=== PATIENT | female | born 1955 | race Hispanic/Latino ===

== ENCOUNTER 2024-02-27 07:24 | Emergency (ER) | payer MEDICARE, OTHER ==
[2024-02-27 07:56] LABS: #Basophils 0.1 thou/uL (0.0-0.2); #Lymphocytes 1.5 thou/uL (1.20-3.40); #Monocytes 0.6 thou/uL (0.11-0.59); #Neutrophils 5.8 thou/uL (1.40-6.50); %Basophils 1.3 % (0.0-1.0); %Eosinophils 0.3 % (0.0-10.0); %Lymphocytes 18.5 % (21.0-51.0); %Monocytes 7.2 % (0.0-10.0); %Neutrophils 72.6 % (42.0-75.0); Hemoglobin 10.6 g/dL (12.0-16.0); Mean Corpuscular HGB CONC 31.1 g/dL (32.0-36.0); Mean Corpuscular Hemoglobin 27.7 pg (27.0-31.0); Mean Platelet Volume 7.3 fL (7.4-10.4); Platelet Count 256 10x3/uL (130-400); RBC Distribution Width 12.5 % (11.5-14.5); Red Blood Cell (RBC) Count 3.82 mill/uL (4.20-5.40)
[2024-02-27 08:14] LABS: ALT (SGPT) 26 U/L (8-55); AST (SGOT) 37 U/L (5-34); Albumin 3.6 g/dL (3.4-4.8); Alkaline Phosphatase 83 U/L (40-110); Anion Gap 16 mmol/L (10-20); BUN (Urea Nitrogen) 38 mg/dL (9.8-20.1); Bilirubin, Total 0.4 mg/dL (0.2-1.2); Calc. Creatinine Clearance 0 mL/min (70-130); Calcium 9.1 mg/dL (7.8-10.44); Carbon Dioxide 22 mmol/L (23-31); Chloride 99 mmol/L (98-107); Estimated GFR 31; Globulin 3.5 g/dL (2.4-3.5); Glucose 371 mg/dL (80-115); Protein, Total 7.1 g/dL (5.8-8.1); Sodium 132 mmol/L (136-145)
[2024-02-27 08:31] LABS: Troponin I 7.229 ng/mL (< 0.028)
[2024-02-27] MEDS ORDERED: Furosemide 40 MG (4 mL) VIAL ONE (08:41)
[2024-02-27] MEDS ORDERED: Enoxaparin 80 MG (0.8 mL) SYRINGE ONE (08:42)
[2024-02-27] MEDS ORDERED: Heparin 25,000 UNITS/D5W 500 ml bag ONE (09:00)
[2024-02-27] MEDS ORDERED: Nitroglycerin 0.4 MG TAB (25 Tab Bottle) ONE (09:00)
[2024-02-27] MEDS ORDERED: Heparin 10,000 UNITS/ 10 ML VIAL ONE (09:00)
[2024-02-27] MEDS ORDERED: Aspirin Chewable 81 MG TAB ONE (09:00)
[2024-02-27 10:01] LABS: Influenza A by NAA Not Detected (NotDetected); Influenza B by NAA Not Detected (NotDetected); SARS-CoV-2 NAA Rapid Test Not Detected (NotDetected)
== END 2024-02-27 09:29 | disposition short-term general hospital (02) ==
LOC: NAV ERS 07:24
DX: I21.4 Non-ST elevation (NSTEMI) myocardial infarction (principal); I50.9 Heart failure, unspecified; Z87.891 Personal history of nicotine dependence
CPT/HCPCS: 0240U; 71045; 80053; 83880; 84484; 85025; 85730; 93005; 94760; 96374; 96375; J1644; J1650; J1940

== ENCOUNTER 2024-03-28 21:20 | Emergency (ER) | payer MEDICARE ==
[2024-03-28] MEDS ORDERED: Furosemide 40 MG (4 mL) VIAL ONE (21:56)
[2024-03-28 22:03] LABS: #Basophils 0.1 thou/uL (0.0-0.2); #Eosinphils 0.6 thou/uL (0.0-0.7); #Lymphocytes 1.3 thou/uL (1.20-3.40); #Monocytes 0.7 thou/uL (0.11-0.59); #Neutrophils 4.6 thou/uL (1.40-6.50); %Basophils 1.7 % (0.0-1.0); %Eosinophils 8.4 % (0.0-10.0); %Lymphocytes 17.5 % (21.0-51.0); %Monocytes 9.2 % (0.0-10.0); %Neutrophils 63.2 % (42.0-75.0); Hematocrit 28.8 % (36.0-47.0); Hemoglobin 8.3 g/dL (12.0-16.0); Mean Corpuscular HGB CONC 28.9 g/dL (32.0-36.0); Mean Corpuscular Hemoglobin 25.9 pg (27.0-31.0); Mean Corpuscular Volume 89.3 fl (78.0-98.0); Mean Platelet Volume 5.8 fL (7.4-10.4); Platelet Count 272 10x3/uL (130-400); RBC Distribution Width 15.7 % (11.5-14.5); Red Blood Cell (RBC) Count 3.23 mill/uL (4.20-5.40); White Blood Cell (WBC) Count 7.2 10x3/uL (4.8-10.8)
[2024-03-28 22:14] LABS: ALT (SGPT) 52 U/L (8-55); AST (SGOT) 75 U/L (5-34); Albumin 3.2 g/dL (3.4-4.8); Alkaline Phosphatase 124 U/L (40-110); Anion Gap 14 mmol/L (10-20); BUN (Urea Nitrogen) 29 mg/dL (9.8-20.1); Bilirubin, Total 0.4 mg/dL (0.2-1.2); Calc. Creatinine Clearance 0 mL/min (70-130); Calcium 8.8 mg/dL (7.8-10.44); Carbon Dioxide 27 mmol/L (23-31); Chloride 102 mmol/L (98-107); Estimated GFR 34; Globulin 3.8 g/dL (2.4-3.5); Glucose 130 mg/dL (80-115); Potassium 5.4 mmol/L (3.5-5.1); Sodium 138 mmol/L (136-145)
[2024-03-28 22:18] LABS: Troponin I 0.219 ng/mL (< 0.028)
== END 2024-03-28 23:39 | disposition short-term general hospital (02) ==
LOC: NAV ERS 21:20
DX: R09.02 Hypoxemia (principal); R35.1 Nocturia; D64.9 Anemia, unspecified; R79.89 Other specified abnormal findings of blood chemistry; I11.0 Hypertensive heart disease with heart failure; I50.9 Heart failure, unspecified; E11.9 Type 2 diabetes mellitus without complications; Z87.891 Personal history of nicotine dependence; Z79.82 Long term (current) use of aspirin; Z79.4 Long term (current) use of insulin
CPT/HCPCS: 71045; 80053; 83880; 84484; 85025; 93005; 96374; J1940

== ENCOUNTER 2024-05-01 14:41 | Emergency (ER) | payer MEDICARE ==
[2024-05-01 15:27] LABS: Hematocrit 32.4 % (36.0-47.0); Hemoglobin 9.7 g/dL (12.0-16.0); Mean Corpuscular Hemoglobin 24.9 pg (27.0-31.0); Mean Corpuscular Volume 83.1 fl (78.0-98.0); White Blood Cell (WBC) Count 9.9 10x3/uL (4.8-10.8)
[2024-05-01 15:28] LABS: #Basophils 0.1 thou/uL (0.0-0.2); #Eosinphils 0.4 thou/uL (0.0-0.7); #Lymphocytes 2.4 thou/uL (1.20-3.40); #Monocytes 0.7 thou/uL (0.11-0.59); #Neutrophils 6.3 thou/uL (1.40-6.50); %Basophils 1.5 % (0.0-1.0); %Eosinophils 3.5 % (0.0-10.0); %Lymphocytes 24.1 % (21.0-51.0); %Monocytes 7.5 % (0.0-10.0); %Neutrophils 63.4 % (42.0-75.0); Manual Diff?? NO; Mean Corpuscular HGB CONC 29.9 g/dL (32.0-36.0); Mean Platelet Volume 7.1 fL (7.4-10.4); Platelet Count 238 10x3/uL (130-400); RBC Distribution Width 16.2 % (11.5-14.5)
[2024-05-01 15:39] LABS: ALT (SGPT) 13 U/L (8-55); AST (SGOT) 15 U/L (5-34); Albumin 3.7 g/dL (3.4-4.8); Alkaline Phosphatase 73 U/L (40-110); Anion Gap 17 mmol/L (10-20); BUN (Urea Nitrogen) 39 mg/dL (9.8-20.1); Bilirubin, Total 0.4 mg/dL (0.2-1.2); Calc. Creatinine Clearance 0 mL/min (70-130); Calcium 9.5 mg/dL (7.8-10.44); Carbon Dioxide 26 mmol/L (23-31); Chloride 98 mmol/L (98-107); Estimated GFR 22; Glucose 151 mg/dL (80-115); Magnesium 2.4 mg/dL (1.6-2.6); Potassium 4.5 mmol/L (3.5-5.1); Protein, Total 8.7 g/dL (5.8-8.1); Sodium 136 mmol/L (136-145)
[2024-05-01 15:40] LABS: Bacteria/HPF 3+ HPF (None Seen); Bilirubin Negative (Negative); Blood, Urine Small (Negative); CAUTI Indications for Culture Dysuria,urgency,freq; Clarity Cloudy (Clear); Glucose, Urine (Dipstick) >=1000 mg/dL (Negative); Ketone, Urine Negative (Negative); Leukocyte Large (Negative); Nitrite Negative (Negative); Protein, Urine (Dipstick) 100 mg/dL (Neg-Trace); Specific Gravity, Urine 1.015 (1.005-1.030); pH, Urine 5.5 (5.0-9.0)
[2024-05-01 15:42] LABS: Urine Culture Reflex Yes Yes
[2024-05-01] MEDS ORDERED: cefTRIAXone (ROCEPHIN) 1 GM VIAL ONE (17:46)
[2024-05-01] MEDS ORDERED: Sodium Chloride 0.9% 100 ML ONE (17:47)
== END 2024-05-01 18:50 | disposition home or self-care (01) ==
LOC: NAV ERS 14:41
DX: N39.0 Urinary tract infection, site not specified (principal); N17.9 Acute kidney failure, unspecified; I25.2 Old myocardial infarction; I48.91 Unspecified atrial fibrillation; E11.9 Type 2 diabetes mellitus without complications; I11.0 Hypertensive heart disease with heart failure; I50.9 Heart failure, unspecified; E78.00 Pure hypercholesterolemia, unspecified; Z87.891 Personal history of nicotine dependence; Z79.82 Long term (current) use of aspirin; Z79.4 Long term (current) use of insulin; Z79.899 Other long term (current) drug therapy
CPT/HCPCS: 80053; 81001; 83605; 83735; 85025; 87077; 87086; 87186; 96374; J0696; J3490

== ENCOUNTER 2024-05-25 22:50 | Emergency (ER) | payer MEDICARE | END 2024-05-25 23:40 | disposition home or self-care (01) | LOC: NAV ERS 22:50 | DX: I95.9 Hypotension, unspecified (principal); E11.9 Type 2 diabetes mellitus without complications; I11.0 Hypertensive heart disease with heart failure; I50.9 Heart failure, unspecified; I25.2 Old myocardial infarction; Z87.891 Personal history of nicotine dependence; Z79.4 Long term (current) use of insulin; Z79.82 Long term (current) use of aspirin; Z79.899 Other long term (current) drug therapy | CPT/HCPCS: 99284 ==

== ENCOUNTER 2024-10-17 12:04 | Outpatient (CLI) | payer MEDICARE ==
[2024-10-17 12:32] LABS: Anion Gap 14 mmol/L (10-20); BUN (Urea Nitrogen) 41 mg/dL (9.8-20.1); Calc. Creatinine Clearance 0 mL/min (70-130); Calcium 9.4 mg/dL (7.8-10.44); Carbon Dioxide 21 mmol/L (23-31); Chloride 106 mmol/L (98-107); Estimated GFR 24; Glucose 114 mg/dL (80-115); Potassium 5.2 mmol/L (3.5-5.1); Sodium 136 mmol/L (136-145)
== END 2024-10-17 12:05 | disposition home or self-care (01) ==
LOC: NAV LAB 12:04
PROVIDERS: ATTEND Internal Medicine Nephrology
DX: N25.81 Secondary hyperparathyroidism of renal origin (principal); N18.9 Chronic kidney disease, unspecified; E66.9 Obesity, unspecified
CPT/HCPCS: 36415; 80048; 82306; 83970

== ENCOUNTER 2025-01-24 08:50 | Emergency (ER) | payer MEDICARE ==
[2025-01-24] MEDS ORDERED: Sodium Chloride 0.9% 500 ML ONE (09:17)
[2025-01-24 09:48] LABS: Clarity Extra Turbid (Clear)
[2025-01-24 09:52] LABS: Bacteria/HPF 4+ HPF (None Seen); CAUTI Indications for Culture Acute Hematuria; RBC/HPF Greater than 50 HPF (0-3); Squamous Epithelial None Seen HPF (0-3); WBC/HPF Greater than 50 HPF (0-3)
[2025-01-24 09:53] LABS: Urine Culture Reflex Yes Yes
[2025-01-24 09:57] LABS: %Basophils 0.5 % (0.0-1.0)
[2025-01-24 09:58] LABS: INR-International Normal Ratio 1.2; Prothrombin Time 15.2 sec (12.0-14.7)
[2025-01-24 09:59] LABS: #Basophils 0.1 thou/uL (0.0-0.2); #Lymphocytes 1.2 thou/uL (1.20-3.40); #Monocytes 0.7 thou/uL (0.11-0.59); #Neutrophils 18.1 thou/uL (1.40-6.50); %Eosinophils 0.1 % (0.0-10.0); %Lymphocytes 6.1 % (21.0-51.0); %Monocytes 3.5 % (0.0-10.0); %Neutrophils 89.8 % (42.0-75.0); Hematocrit 26.7 % (36.0-47.0); Hemoglobin 8.3 g/dL (12.0-16.0); Mean Corpuscular HGB CONC 31.2 g/dL (32.0-36.0); Mean Corpuscular Hemoglobin 27.1 pg (27.0-31.0); Mean Corpuscular Volume 86.9 fl (78.0-98.0); Mean Platelet Volume 5.6 fL (7.4-10.4); Platelet Count 223 10x3/uL (130-400); RBC Distribution Width 15.2 % (11.5-14.5); Red Blood Cell (RBC) Count 3.07 mill/uL (4.20-5.40); White Blood Cell (WBC) Count 20.1 10x3/uL (4.8-10.8)
[2025-01-24 10:05] LABS: ALT (SGPT) 8 U/L (Less than 34); AST (SGOT) 18 U/L (11-34); Albumin 3.3 g/dL (3.1-4.5); Alkaline Phosphatase 53 U/L (40-110); Anion Gap 15 mmol/L (10-20); BUN (Urea Nitrogen) 62 mg/dL (9.8-20.1); Bilirubin, Total 0.5 mg/dL (0.3-1.2); Calc. Creatinine Clearance 0 mL/min (70-130); Calcium 9.1 mg/dL (7.8-10.44); Carbon Dioxide 17 mmol/L (23-31); Chloride 103 mmol/L (98-107); Estimated GFR 10; Globulin 4.5 g/dL (2.4-3.5); Glucose 152 mg/dL (80-115); Potassium 4.7 mmol/L (3.5-5.1); Protein, Total 7.8 g/dL (5.8-8.1); Sodium 130 mmol/L (136-145)
[2025-01-24] MEDS ORDERED: Sodium Chloride 0.9% 100 ML ONE (10:26)
[2025-01-24] MEDS ORDERED: cefTRIAXone (ROCEPHIN) 2 GM VIAL ONE (10:26)
[2025-01-24] MEDS ORDERED: Sodium Chloride 0.9% 1,000 ML ONE (10:26)
== END 2025-01-24 12:30 | disposition short-term general hospital (02) ==
LOC: NAV ERS 08:50
DX: N10 Acute pyelonephritis (principal); N30.01 Acute cystitis with hematuria; D72.829 Elevated white blood cell count, unspecified; E78.00 Pure hypercholesterolemia, unspecified; I13.0 Hypertensive heart and chronic kidney disease with heart failure and stage 1 through stage 4 chronic kidney disease, or unspecified chronic kidney disease; E11.22 Type 2 diabetes mellitus with diabetic chronic kidney disease; N18.9 Chronic kidney disease, unspecified; N17.9 Acute kidney failure, unspecified; I50.9 Heart failure, unspecified; Z95.5 Presence of coronary angioplasty implant and graft; Z79.4 Long term (current) use of insulin; Z79.899 Other long term (current) drug therapy; Z87.891 Personal history of nicotine dependence
CPT/HCPCS: 74176; 80053; 81001; 85025; 85610; 85730; 87040; 87077; 87086; 87149; 87186; 96365; J0696; J7030

== ENCOUNTER 2025-05-01 13:33 | Outpatient (CLI) | payer MEDICARE ==
[2025-05-01 14:04] LABS: Hematocrit 31.8 % (36.0-47.0); Hemoglobin 10.3 g/dL (12.0-16.0)
[2025-05-01 14:16] LABS: ALT (SGPT) 8 U/L (Less than 34); AST (SGOT) 20 U/L (11-34); Anion Gap 14 mmol/L (10-20); BUN (Urea Nitrogen) 39 mg/dL (9.8-20.1); Calc. Creatinine Clearance 0 mL/min (70-130); Calcium 8.8 mg/dL (7.8-10.44); Carbon Dioxide 23 mmol/L (23-31); Cardiac Risk 2.0 (Less than 4.5); Chloride 107 mmol/L (98-107); Cholesterol 114 mg/dl (< 200 Desired); Glucose 130 mg/dL (80-115); HDL Cholesterol 56 mg/dL (>60 Neg Risk); LDL Cholesterol, Calculated 40 mg/dL; Potassium 4.4 mmol/L (3.5-5.1); Sodium 140 mmol/L (136-145); Triglycerides 90 mg/dL (Less than 150)
== END 2025-05-01 13:34 | disposition home or self-care (01) ==
LOC: NAV LAB 13:33
PROVIDERS: ATTEND Internal Medicine Nephrology
DX: N18.9 Chronic kidney disease, unspecified (principal); D63.1 Anemia in chronic kidney disease; D50.9 Iron deficiency anemia, unspecified; N25.81 Secondary hyperparathyroidism of renal origin
CPT/HCPCS: 36415; 80048; 80061; 84450; 84460; 85014; 85018

== ENCOUNTER 2025-06-06 15:42 | Outpatient (CLI) | payer MEDICARE | END 2025-06-06 15:43 | disposition home or self-care (01) | LOC: NAV RAD 15:42 | PROVIDERS: ATTEND Internal Medicine Nephrology | DX: N18.5 Chronic kidney disease, stage 5 (principal) | CPT/HCPCS: 71046 ==